=== PATIENT | female | born 1965 | race Caucasian/White ===

== ENCOUNTER 2017-08-10 09:42 | Emergency (ER) | payer OTHER ==
[~2017-08-10 09:42] MED LIST: PRED10PA PO; TESS200C PO; TOPR100T15 PO; VENTAER INH; WELL150T PO; ZITH250T PO
[2017-08-10 09:55] VITALS: BP 217/108; PULSE 82; RESP 20; TEMP 98.4; O2SAT 96
[2017-08-10] MEDS ORDERED: METO25TA3 PO (09:59)
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
[2017-08-10 10:14] VITALS: BP 176/106; PULSE 71; RESP 18; O2SAT 100
[2017-08-10] MEDS ORDERED: ASPIRIN 81 MG CHEW TAB PO ONE (10:15)
[2017-08-10] MEDS ORDERED: NITROGLYCERIN 0.4 MG SL 25 TABS/BTL SL ONE (10:15)
[2017-08-10] MEDS ORDERED: SODIUM CHLORIDE 0.9% FLUSH 10 ML FLUSH IVF PRN (10:15)
[2017-08-10 10:20] LABS: AUTOMATED NEUTROPHIL # 3.4 TH/MM3 (1.8-7.7); BASOPHIL # 0.1 TH/MM3 (0-0.2); EOSINOPHIL # 0.2 TH/MM3 (0-0.4); EOSINOPHIL % 3.4 % (0.0-4.0); HEMATOCRIT 38.7 % (35.0-46.0); HEMO FLAGS DIFF FINAL; LYMPH % 39.4 % (9.0-44.0); LYMPHOCYTE # 2.8 TH/MM3 (1.0-4.8); MEAN CELL VOLUME 87.6 FL (80.0-100.0); MEAN CORPUSCULAR HEMOGLOBIN 29.2 PG (27.0-34.0); MEAN CORPUSCULAR HGB CONC 33.4 % (32.0-36.0); MONO % 7.7 % (0.0-8.0); NEUT % 48.5 % (16.0-70.0); PLATELET COUNT 291 TH/MM3 (150-450); RED BLOOD COUNT 4.42 MIL/MM3 (4.00-5.30); RED CELL DISTRIBUTION WIDTH 13.1 % (11.6-17.2)
--- NOTE | 2017-08-10 10:29 | RADRPT ---
EXAM DATE/TIME: 08/10/2017 10:17 [facility] COMPARISON: No previous studies available for comparison. INDICATIONS : Chest pain, bilateral hand numbness MEDICAL HISTORY : Hypertension. SURGICAL HISTORY : None. ENCOUNTER: Initial ACUITY: 1 day PAIN SCORE: 4/10 LOCATION: Bilateral chest FINDINGS: Portable AP view of the chest demonstrates a normal-sized cardiac silhouette. No effusion, consolidat ion, or pneumothorax is visualized. The bones and soft tissues demonstrate no acute abnormality. CONCLUSION: No acute cardiopulmonary abnormality is identified. Aashish Peraza MD on August 10, 2017 at 10:24 Board Certified Radiologist. This report was verified electronically.
[2017-08-10 10:30] LABS: CHLORIDE 104 MEQ/L (98-107); POTASSIUM 3.4 MEQ/L (3.5-5.1); SODIUM (NA) 139 MEQ/L (136-145)
[2017-08-10 10:33] LABS: ANION GAP 11 MEQ/L (5-15); APTT (PATIENT) 35.2 SEC (24.3-30.1); BICARBONATE 24.5 MEQ/L (21.0-32.0); BLOOD UREA NITROGEN 15 MG/DL (7-18); INTERNATIONAL NORMALIZED RATIO 0.9 RATIO
[2017-08-10 10:36] LABS: GLOMERULAR FILTRATION RATE 79 ML/MIN (>89)
[2017-08-10 10:39] LABS: CREATINE KINASE 157 U/L (26-192)
[2017-08-10 10:51] LABS: CKMB 2.4 NG/ML (0.5-3.6)
[2017-08-10 10:56] VITALS: BP 146/87; PULSE 73; RESP 18; O2SAT 100
--- NOTE | 2017-08-11 11:21 | EKG ---
Date Performed: 08/10/2017 Time Performed: 09:50:58 PTAGE: 52 years EKG: Sinus rhythm WITH SINUS ARRHYTHMIA WITH SHORT ID INTERVAL BORDERLINE ECG INTERPRETATION BASED ON A DEFAULT AGE OF 38 YEARS PREVIOUS TRACING 07/31/05 Compared to prior tracing no significant change DOCTOR: Isabel Allan Interpretating Date/Time 08/11/2017 11:19:48
== END 2017-08-10 11:38 | disposition home or self-care (01) ==
LOC: PHED 09:42
DX: R07.9 Chest pain, unspecified (principal); I10 Essential (primary) hypertension; I49.8 Other specified cardiac arrhythmias; Z87.891 Personal history of nicotine dependence
CPT/HCPCS: 71010; 80048; 82550; 82552; 83735; 84484; 85025; 85610; 85730; 93005